=== PATIENT | female | born 1960 | race Caucasian/White ===

== ENCOUNTER 2017-10-06 19:20 | Emergency (ER) | payer BC ==
[~2017-10-06] VITALS: Ht 165.1 cm; Wt 95.2 kg
[~2017-10-06 19:20] MED LIST: ADVAIR; ALBU90OI61 INH; AMLO10 PO; ASPI325 PO; CITRACAL + D M1 EACH PO; IRON PO; LOSA50 PO; LOSARTAN POTAS100 MG PO; METF500 PO; MULTIVITAMIN PO; MULVIT PO; Norco 5-325 Ta1 EACH PO; PROZAC20 MG PO; Prilosec Otc20 MG PO; Prozac20 MG PO; Robaxin500 MG PO; SIMV40 PO; XARELTO15 MG PO; XARELTO20 MG PO; ZOCOR PO
[2017-10-06] MEDS ORDERED: AMLO10 PO (20:19)
[2017-10-06] MEDS ORDERED: LOVA40 (20:20)
[2017-10-06] MEDS ORDERED: Norco 5-325 Ta1 EACH PO (20:59)
== END 2017-10-06 21:04 | disposition home or self-care (01) ==
LOC: ER 19:20
DX: R07.89 Other chest pain (principal)
CPT/HCPCS: 71101; 99283

== ENCOUNTER 2018-02-18 13:05 | Emergency (ER) | payer BC ==
[~2018-02-18] VITALS: Ht 165.1 cm; Wt 94.0 kg
[~2018-02-18 13:05] MED LIST changes: +LOVA40
[2018-02-18 13:41] LABS: BASOPHILS PERCENT AUTO 1 % (0-2); EOSINOPHILS ABSOLUTE AUTO 0.11 K/mm3 (0.00-0.68); EOSINOPHILS PERCENT AUTO 1 % (0-6); Hematocrit 35.9 % (33.0-51.0); Hemoglobin 10.9 g/dL (11.5-16.0); IMMATURE GRAN ABSOLUTE AUTO 0.01 K/mm3 (0.00-0.10); IMMATURE GRAN PERCENT AUTO 0 % (0-1); LYMPHOCYTES ABSOLUTE AUTO 2.36 K/mm3 (0.84-5.20); LYMPHOCYTES PERCENT AUTO 31 % (21-46); MONOCYTES ABSOLUTE AUTO 0.65 K/mm3 (0.16-1.47); MONOCYTES PERCENT AUTO 8 % (4-13); Mean Corpuscular HGB 25.3 pg (26.0-34.0); Mean Corpuscular HGB Conc 30.4 g/dL (31.5-36.5); Mean Corpuscular Volume 84 fL (80-100); Mean Platelet Volume 10.2 fL (9.1-12.4); NEUTROPHILS ABSOLUTE AUTO 4.52 K/mm3 (1.96-9.15); NEUTROPHILS PERCENT AUTO 58 % (41-73); Platelet Count 384 K/mm3 (150-400); RDW Coefficient Variation 14.2 % (11.7-14.2); White Blood Cell Count 7.75 K/mm3 (4.00-11.30)
[2018-02-18 13:57] LABS: Alanine Aminotransfer (ALT/SGP 20 U/L (12-78); Albumin, Blood 3.6 g/dL (3.4-5.0); Alk Phos 75 U/L (50-136); Anion Gap 9 mmol/L (6-16); Aspartate Aminotrans (AST/SGOT 19 U/L (12-37); Bilirubin, Total 0.2 mg/dL (0.1-1.0); Blood Urea Nitrogen 13 mg/dL (8-24); CO2, Blood 27 mmol/L (21-32); Calcium, Blood 8.9 mg/dL (8.5-10.1); Chloride, Blood 103 mmol/L (98-108); Creatinine, Blood 0.69 mg/dL (0.40-1.00); Globulin, Blood 3.7 g/dL (2.2-4.0); Glomerular Filtration Rate >60 (60-); Glucose, Blood 99 mg/dL (70-99); Potassium, Blood 3.9 mmol/L (3.5-5.5); Sodium, Blood 139 mmol/L (136-145); Total Protein, Blood 7.3 g/dL (6.4-8.2); Troponin I <0.015 ng/mL (0.000-0.040)
[2018-02-18 14:42] LABS: Source, Urine Clean Catch
[2018-02-18 14:47] LABS: Bilirubin, Urine Neg (Neg); Blood, Urine Neg (Neg); Glucose Qualitative, Urine 2+ (Neg); Ketones, Urine Neg (Neg); Leukocyte Esterase, Urine 1+ (Neg); Nitrite, Urine Neg (Neg); Protein, Urine Neg (Neg); Specific Gravity, Urine 1.005 (1.003-1.022); Urobilinogen, Urine NORM (Normal); pH, Urine 6.5 (5.0-8.0)
[2018-02-18 14:50] LABS: Appearance, Urine Clear (Clear); Color, Urine Yellow (P-Yellow)
[2018-02-18 14:52] LABS: Bacteria Few /hpf; Red Blood Cells, Urine 0-2 /hpf (0-2); Squamous Epithelial Cells Not Seen /hpf (Few); White Blood Cells, Urine 0-2 /hpf (0-5)
[2018-02-18] MEDS ORDERED: Percocet 5-3251 EACH PO (15:53)
== END 2018-02-18 16:15 | disposition home or self-care (01) ==
LOC: ER 13:05
PROVIDERS: Emergency Medicine
DX: R10.11 Right upper quadrant pain (principal); E11.9 Type 2 diabetes mellitus without complications; I10 Essential (primary) hypertension; E78.5 Hyperlipidemia, unspecified; D64.9 Anemia, unspecified; Z87.891 Personal history of nicotine dependence
CPT/HCPCS: 36415; 71046; 76705; 80053; 81001; 83690; 83880; 84484; 85025; 87086; 93005; 93010; 99285-25

== ENCOUNTER 2020-11-05 12:38 | Emergency (ER) | payer BC ==
[~2020-11-05] VITALS: Ht 165.1 cm; Wt 93.9 kg
[2020-11-05 14:18] LABS: BASOPHILS ABSOLUTE AUTO 0.09 K/mm3 (0.00-0.23); BASOPHILS PERCENT AUTO 1 % (0-2); EOSINOPHILS ABSOLUTE AUTO 0.14 K/mm3 (0.00-0.68); EOSINOPHILS PERCENT AUTO 2 % (0-6); Hemoglobin 12.9 g/dL (11.5-16.0); IMMATURE GRAN ABSOLUTE AUTO 0.02 K/mm3 (0.00-0.10); IMMATURE GRAN PERCENT AUTO 0 % (0-1); LYMPHOCYTES ABSOLUTE AUTO 2.65 K/mm3 (0.84-5.20); LYMPHOCYTES PERCENT AUTO 34 % (21-46); MONOCYTES ABSOLUTE AUTO 0.77 K/mm3 (0.16-1.47); MONOCYTES PERCENT AUTO 10 % (4-13); Mean Corpuscular HGB 27.2 pg (26.0-34.0); Mean Corpuscular HGB Conc 30.7 g/dL (31.5-36.5); Mean Corpuscular Volume 88 fL (80-100); NEUTROPHILS ABSOLUTE AUTO 4.04 K/mm3 (1.96-9.15); NEUTROPHILS PERCENT AUTO 52 % (41-73); Platelet Count 343 K/mm3 (150-400); RDW Coefficient Variation 15.5 % (11.7-14.2); Red Blood Cell Count 4.75 M/mm3 (3.80-5.20); White Blood Cell Count 7.71 K/mm3 (4.00-11.30)
[2020-11-05 14:32] LABS: Alanine Aminotransfer (ALT/SGP 25 U/L (12-78); Albumin, Blood 3.4 g/dL (3.4-5.0); Albumin/Globulin Ratio 0.9 (0.8-1.8); Alk Phos 69 U/L (50-136); Anion Gap 8 mmol/L (6-16); Aspartate Aminotrans (AST/SGOT 16 U/L (12-37); Bilirubin, Total 0.2 mg/dL (0.1-1.0); Blood Urea Nitrogen 17 mg/dL (8-24); Bun/Creatinine Ratio 20.3 (12.0-20.0); CO2, Blood 28 mmol/L (21-32); Calcium, Blood 8.8 mg/dL (8.5-10.1); Chloride, Blood 104 mmol/L (98-108); Creatinine, Blood 0.84 mg/dL (0.40-1.00); Globulin, Blood 3.7 g/dL (2.2-4.0); Glomerular Filtration Rate >60 (60-); Glucose, Blood 73 mg/dL (70-99); Potassium, Blood 3.7 mmol/L (3.5-5.5); Sodium, Blood 140 mmol/L (136-145); Total Protein, Blood 7.1 g/dL (6.4-8.2); Troponin I <0.015 ng/mL (0.000-0.040)
== END 2020-11-05 15:47 | disposition home or self-care (01) ==
LOC: ER 12:38
PROVIDERS: Emergency Medicine
DX: R07.89 Other chest pain (principal); E11.9 Type 2 diabetes mellitus without complications; Z88.0 Allergy status to penicillin; Z88.2 Allergy status to sulfonamides; Z88.1 Allergy status to other antibiotic agents; Z79.84 Long term (current) use of oral hypoglycemic drugs; Z79.899 Other long term (current) drug therapy; Z87.891 Personal history of nicotine dependence
CPT/HCPCS: 80053; 84484; 85025; 93005; 93010; 99283-25; J7030

== ENCOUNTER → 2020-11-05 | Outpatient (CLI) | payer BC ==
[~2020-11-05] MED LIST changes: +AMLO5 PO; +CEPH500; +GLIP5 PO; +GLYB2.5 PO; +INVOKANA100 MG PO; -LOVA40; +LOVA40 PO; +OMEPRAZOLE MAGN20 MG PO; +Percocet 5-3251 EACH PO
== END | disposition home or self-care (01) ==
LOC: PLD 12:23 → LAB SHORT 12:23
DX: R07.9 Chest pain, unspecified (principal)
CPT/HCPCS: 84484

== ENCOUNTER → 2023-05-06 | Outpatient (CLI) | payer BC | END | disposition home or self-care (01) | LOC: LAB 16:19 → LAB SHORT 16:19 | DX: R30.0 Dysuria (principal) | CPT/HCPCS: 87086 ==

== ENCOUNTER → 2023-07-16 | Outpatient (CLI) | payer BC | LOC: LAB SHORT 12:50 → LAB 12:50 | DX: R35.0 Frequency of micturition (principal) | CPT/HCPCS: 87077; 87086; 87186 ==

== ENCOUNTER 2024-01-16 07:18 | Day surgery (SDC) | payer BC ==
[2024-01-16] VITALS (10 sets, daily range): BP systolic 114–174; BP diastolic 58–85
[~2024-01-16] VITALS: Ht 165.1 cm; Wt 92.0 kg
[~2024-01-16 07:18] MED LIST changes: +Diflucan150 MG PO; +FERSU300 PO; +Lactated Ringer's 1,000 ML IV SCH; +MECL25 PO; +PSEU120ER PO; +RYBELSUS3 MG PO; +TRAM50 PO
[2024-01-16] MEDS ORDERED: Bupivacaine 0.5% HCl 5 MG/ML 30MLVIAL ONE (07:28)
[2024-01-16] MEDS ORDERED: propofoL 20 ML IV ONE (07:48)
[2024-01-16] MEDS ORDERED: Rocuronium Bromide 10 MG/ML 5ML Injection IV ONE ×3 (07:49→08:41)
[2024-01-16] MEDS ORDERED: FentaNYL Citrate 50 MCG/ML 2 ML Injection ONE ×2 (07:50→09:28)
[2024-01-16] MEDS ORDERED: Lidocaine HCl 2% Jelly 120MG/6ML SYR (20MG PER ML) ONE (08:10)
[2024-01-16] MEDS ORDERED: Scopolamine Hydrobromide Patch TOP ONE (08:10)
[2024-01-16] MEDS ORDERED: Midazolam HCl 1MG / ML 2ML Vial IV ONE (08:10)
[2024-01-16] MEDS ORDERED: Metoclopramide HCl 5MG / ML 2ML Vial ONE (08:35)
[2024-01-16] MEDS ORDERED: Ondansetron HCl 2 MG / ML 2ML Vial ONE (08:42)
[2024-01-16] MEDS ORDERED: Dexamethasone Sod Phos 10 MG/ML 1ML VIAL ONE (08:42)
[2024-01-16] MEDS ORDERED: Ondansetron HCl 2 MG / ML 2ML Vial IV PRN ×2 (08:55→09:00)
[2024-01-16] MEDS ORDERED: Glycopyrrolate 0.2 MG/ML 5ML VIAL ONE (08:55)
[2024-01-16] MEDS ORDERED: FentaNYL Citrate 50 MCG/ML 2 ML Injection IV PRN ×6 (08:55→09:00)
[2024-01-16] MEDS ORDERED: Phenylephrine HCl 100 MCG/ML-NS 10MLSYR (1MG/10ML) ONE (09:19)
[2024-01-16] MEDS ORDERED: Sugammadex Sodium 200 MG/2ML SDV (100 MG/ML) ONE (09:20)
[2024-01-16] MEDS ORDERED: Flumazenil 0.1 MG / ML 5ML Vial ONE (09:49)
[2024-01-16] MEDS ORDERED: HYDROcodone 5-APAP 325 TAB PO PRN (10:00)
[2024-01-16] MEDS ORDERED: Droperidol 5 mg/2 ml Vial IV ONE (10:40)
[2024-01-16] MEDS ORDERED: Droperidol 5 mg/2 ml Vial ONE (10:47)
--- NOTE | 2024-01-16 12:02 | NUR ---
Discharge instructions reviewed with patient. Patient verbalizes understanding. Copy given to patient to take home. BELONGINGS RETURNED TO PT. GLASSES RETURNED TO PT. Ambulatory in Day Surgery WITH STEADY GAIT. ABLE TO TRANSFER FROM [facility] TO [facility] INDEPENDENTLY. Discharged via wheelchair to private car for ride home WITH SPOUSE
== END 2024-01-16 12:00 | disposition home or self-care (01) ==
LOC: ORSCMMR 07:18 → ORD 08:45 → ORSCMMR 09:00 → ORD 09:00 → ORSCMMR 12:00 → ORD 01-25 07:30
PROVIDERS: Surgery
PROC: BF031ZZ Plain Radiography of Gallbladder and Bile Ducts using Low Osmolar Contrast (ICD-10-PCS; principal; 2024-01-16 09:00)
PROC: 0FT44ZZ Resection of Gallbladder, Percutaneous Endoscopic Approach (ICD-10-PCS; principal; 2024-01-16 09:00)
DX: K80.20 Calculus of gallbladder without cholecystitis without obstruction (principal); I10 Essential (primary) hypertension; J45.909 Unspecified asthma, uncomplicated; I48.91 Unspecified atrial fibrillation; Z79.01 Long term (current) use of anticoagulants; E11.9 Type 2 diabetes mellitus without complications; Z79.84 Long term (current) use of oral hypoglycemic drugs; D68.51 Activated protein C resistance; Z79.899 Other long term (current) drug therapy; F41.8 Other specified anxiety disorders
CPT/HCPCS: 74300; 82947; 88304; 93005; 93010; A9270; J1100; J1790; J2250; J2371; J2405; J2704; J2765; J3010; J7120

== ENCOUNTER 2024-01-20 22:20 | Emergency (ER) | payer BC ==
[~2024-01-20] VITALS: Ht 165.1 cm; Wt 90.7 kg
[~2024-01-20 22:20] MED LIST changes: -Lactated Ringer's 1,000 ML IV SCH
[2024-01-20] MEDS ORDERED: Ondansetron HCl 2 MG / ML 2ML Vial IV PRN (22:30)
[2024-01-20 22:43] LABS: BASOPHILS ABSOLUTE AUTO 0.08 K/mm3 (0.00-0.23); BASOPHILS PERCENT AUTO 1 % (0-2); EOSINOPHILS ABSOLUTE AUTO 0.18 K/mm3 (0.00-0.68); EOSINOPHILS PERCENT AUTO 2 % (0-6); Hematocrit 35.9 % (33.0-51.0); Hemoglobin 11.9 g/dL (11.5-16.0); IMMATURE GRAN ABSOLUTE AUTO 0.03 K/mm3 (0.00-0.10); IMMATURE GRAN PERCENT AUTO 0 % (0-1); LYMPHOCYTES ABSOLUTE AUTO 2.71 K/mm3 (0.84-5.20); LYMPHOCYTES PERCENT AUTO 30 % (21-46); MONOCYTES ABSOLUTE AUTO 0.72 K/mm3 (0.16-1.47); MONOCYTES PERCENT AUTO 8 % (4-13); Mean Corpuscular HGB 31.6 pg (26.0-34.0); Mean Corpuscular HGB Conc 33.1 g/dL (31.5-36.5); Mean Corpuscular Volume 96 fL (80-100); Mean Platelet Volume 10.2 fL (9.1-12.4); NEUTROPHILS ABSOLUTE AUTO 5.35 K/mm3 (1.96-9.15); NEUTROPHILS PERCENT AUTO 59 % (41-73); Platelet Count 295 K/mm3 (150-400); RDW Coefficient Variation 12.3 % (11.7-14.2); RDW Standard Deviation 42.8 fL (35.1-46.3); Red Blood Cell Count 3.76 M/mm3 (3.80-5.20); White Blood Cell Count 9.07 K/mm3 (4.00-11.30)
[2024-01-20 23:03] LABS: Albumin/Globulin Ratio 0.8 (0.8-1.8); Bilirubin, Total 0.2 mg/dL (0.1-1.0); Bun/Creatinine Ratio 26.1 (12.0-20.0); Calcium, Blood 9.1 mg/dL (8.5-10.1); Creatinine, Blood 0.73 mg/dL (0.40-1.00); Globulin, Blood 3.6 g/dL (2.2-4.0); Potassium, Blood 4.2 mmol/L (3.5-5.5); Total Protein, Blood 6.6 g/dL (6.4-8.2)
[2024-01-21 04:30] VITALS: BP 136/72
== END 2024-01-21 04:33 | disposition home or self-care (01) ==
LOC: ER 22:20
PROVIDERS: Emergency Medicine
DX: R07.89 Other chest pain (principal); Z88.0 Allergy status to penicillin; Z88.2 Allergy status to sulfonamides; Z88.8 Allergy status to other drugs, medicaments and biological substances; Z79.899 Other long term (current) drug therapy; Z79.84 Long term (current) use of oral hypoglycemic drugs; E11.9 Type 2 diabetes mellitus without complications
CPT/HCPCS: 71046; 71260; 76377; 80053; 83690; 84484; 85025; 85379; 93005; 93010; 96374; 99285-25; J2405; Q9967

== ENCOUNTER 2024-08-31 13:06 | Emergency (ER) | payer OTHER, BC ==
[~2024-08-31] VITALS: Ht 165.1 cm; Wt 90.7 kg
[2024-08-31 13:20] VITALS: BP 167/101
== END 2024-08-31 15:47 | disposition home or self-care (01) ==
LOC: ER 13:06
DX: S80.01XA Contusion of right knee, initial encounter (principal); I10 Essential (primary) hypertension; E11.9 Type 2 diabetes mellitus without complications; W01.0XXA Fall on same level from slipping, tripping and stumbling without subsequent striking against object, initial encounter; Z88.0 Allergy status to penicillin; Z88.2 Allergy status to sulfonamides; Z79.84 Long term (current) use of oral hypoglycemic drugs
CPT/HCPCS: 73562-RT; 99283-25

== ENCOUNTER → 2025-07-09 | Outpatient (CLI) | payer MEDICARE, BC | LOC: LAB 17:56 → LAB SHORT 17:56 | DX: R39.15 Urgency of urination (principal) | CPT/HCPCS: 87077; 87086; 87186 ==